=== PATIENT | female | born 1985 | race Caucasian/White ===

== ENCOUNTER → 2017-03-07 | Outpatient (CLI) | payer MEDICAID ==
[~2017-03-07] MED LIST: AMOXIL875 MG PO; BACTRIM DS 8001 TAB PO; BACTROBAN2% TP; BACTROBAN23 TP; BENADRYL 50MG C50 MG PO; CLINDAMYCIN300 MG PO; COLACE100 MG PO; DILAUDID2 MG PO; IRON TABLETS325 M1 PO; IRON TABLETS325 MG PO; KEFLEX 500MG.500 MG PO; MEDROL 4MG. DOSE4 MG PO; MOTRIN 400MG.400 MG PO; PERCOCET 650 MG1 TAB PO; PHENERGAN 12.12.5 M1 PO; PHENERGAN 25MG.25 M1 PO; PNV PRENATAL PL1 TAB PO; PRENATAL PLUS1 TA1 PO; PRILOSEC40 MG PO; UNISOM25 M1 PO; ZOFRAN ODT4 MG PO; ZOFRAN4 MG PO
[2017-03-07 17:11] LABS: LYMPH # 2.1 K/mm3 (0.7-4.5); LYMPH % 21.9 % (10-50.0)
[2017-03-07 17:25] LABS: HEMOGLOBIN 14.6 g/dL (12.2-16.2)
[2017-03-10 16:40] LABS: Thyroglobulin Antibody <1.0 IU/mL (0.0-0.9); Thyroid Peroxidase (TPO) Ab 11 IU/mL (0-34)
[2017-03-10 18:36] LABS: Antinuclear Antibodies, IFA Negative (.)
== END ==
LOC: LAB 16:49
PROVIDERS: Allergy & Immunology
DX: L50.8 Other urticaria (principal)